=== PATIENT | male | born 1945 | race Caucasian/White ===

== ENCOUNTER → 2018-12-25 | Outpatient (CLI) | payer MEDICARE ==
--- NOTE | 2018-12-25 13:58 | Diagnostic Imaging Report ---
PROCEDURE: CT abdomen and pelvis without contrast. TECHNIQUE: Multiple contiguous axial images were obtained through the abdomen and pelvis without the use of intravenous contrast. Auto Exposure Controls were utilized during the CT exam to meet ALARA standards for radiation dose reduction. INDICATION: Aneurysm. COMPARISON: There are no prior studies available for comparison. FINDINGS: The abdominal aorta is ectatic, and there is extensive atherosclerotic plaque throughout the aorta. Furthermore, there does appear to be an infrarenal aneurysm of the aorta measuring 4.1 x 5.0 cm in maximum transverse and AP diameters. The aneurysm originates below the renal arteries and terminates at the bifurcation. There is no periaortic fluid collection to suggest an acute abnormality of the aorta. 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 The common iliac artery on the right measures 2.3 x 2.6 cm while the common iliac artery on the left measures 2.1 x 2.1 cm. There is no abnormal fluid collection adjacent to the iliac arteries to suggest an acute abnormality either. There is no pelvic mass or free fluid collection identified. There are a few diverticula of the sigmoid colon, but there is no sign of acute diverticulitis. The urinary bladder and prostate gland are grossly unremarkable. The appendix was visualized and is not abnormally thickened. There is a fair amount of fecal material throughout the ascending, transverse, and proximal descending colon. The liver does not appear to be enlarged. The spleen, pancreas, gallbladder, adrenals, and inferior vena cava are unremarkable for an acute abnormality. There do appear to be cysts associated with both kidneys. The largest cyst on the right is along the medial aspect of the kidney and measures 4.5 x 5.1 cm. There is also a large 11.8 x 13.0 cm cyst along the superior pole of the left kidney. These cysts have a generally benign appearance. If further study is desired, however, then ultrasound would be recommended. The stomach is not well distended and consequently difficult to assess. The lung bases are clear. There is mild cardiomegaly and coronary artery disease noted. The bone windows show no sign of a fracture or of a destructive lesion. IMPRESSION: 1. There is no evidence for an acute abnormality of the abdomen or pelvis. 2. There is aneurysmal dilatation of the infrarenal abdominal aorta. The aneurysm measures 4.1 x 5.0 cm. 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 3. There are multiple bilateral cysts including a 13 cm cyst along the superior pole of the left kidney. These cysts are most likely benign. If further study is desired, then ultrasound would be recommended. 4. There is mild cardiomegaly and coronary artery disease. Dictated by: Dictated on workstation # [id number]
== END ==
LOC: RAD FS 13:05
PROVIDERS: ATTEND Nurse Practitioner
DX: I71.4 Abdominal aortic aneurysm, without rupture (principal); I72.3 Aneurysm of iliac artery; N28.1 Cyst of kidney, acquired; I25.10 Atherosclerotic heart disease of native coronary artery without angina pectoris; I51.7 Cardiomegaly
CPT/HCPCS: 74176